=== PATIENT | male | born 1945 | race Caucasian/White ===

== ENCOUNTER 2024-10-08 08:33 | Outpatient (RCR) | payer OTHER, MEDICARE, SELFPAY | END 2024-11-05 23:59 | disposition home or self-care (01) | LOC: CR 08:33 | PROVIDERS: PCP Internal Medicine; Visit Provider Internal Medicine | DX: J84.112 Idiopathic pulmonary fibrosis (principal) | CPT/HCPCS: 94626 ==

== ENCOUNTER 2024-11-13 15:28 | Outpatient (RCR) | payer OTHER, MEDICARE, SELFPAY | END 2024-12-05 23:59 | disposition home or self-care (01) | LOC: CR 15:28 | PROVIDERS: PCP Internal Medicine; Visit Provider Internal Medicine | DX: J84.112 Idiopathic pulmonary fibrosis (principal) | CPT/HCPCS: 94626 ==